=== PATIENT | female | born 1970 | race Caucasian/White ===

== ENCOUNTER 2019-11-13 22:38 | Emergency (ER) | payer OTHER ==
[~2019-11-13] VITALS: Ht 177.8 cm; Wt 83.9 kg
[2019-11-13] MEDS ORDERED: PIPERACILLIN/TAZOBACTAM 3.375 GM in IV NORMAL SALINE 50ML 50 ML IV ONE (22:45)
[2019-11-13] MEDS ORDERED: IV NORMAL SALINE 1,000ML 1,000 ML IV ONE ×2 (22:45)
--- NOTE | 2019-11-13 23:06 | PHYS DOC ---
Adult General HPI HPI Patient is a 49-year-old female brought in by ambulance after a syncopal episode. For the last 2 weeks she has been quite sick overall it started with nausea and vomiting significant lower abdominal pain as well. Was unable to keep anything down has been been giving her some chicken broth as well as a little sips of Pedialyte but she was having a lot of vomiting she also has been having diarrhea she was complaining of significant lower abdominal discomfort. She's also been coughing with yellowish and whitish colored sputum she is having increasing shortness of breath and chest tightness with coughing over the last few days. The chest pain is coming and going just at times and random not cur rently really having it. She went to urgent care 3 days ago they diagnosed her with possible thrush they gave her flu, as all and they gave her Bactrim for an unclear etiology I think they thought she was having an upper respiratory infection according to the 's interpretation as well as brief review of the discharge instructions. Tonight patient was trying to get up to go to the bathroom she rolled out of bed she had a syncopal episode she had a witnessed loss of consciousness no head trauma was noted by the patient with the . Patient is somewhat altered breathing fast history is somewhat limited by the acuity of the condition Review of Systems Review of Systems Treatment somewhat limited by the acuity of the condition past medical history mild asthma medications none allergies none social history lives with does not drink alcohol no smoking no drugs. Current Medications Current Medications Current Medications Medications (Trade) Dose Ordered Sig/Kehinde Start Time Stop Time Status Last Admin Dose Admin Piperacillin Sod/ Tazobactam Sod 3.375 gm/Sodium Chloride 50 ml @ 100 mls/hr 1X ONCE 11/13/19 22:45 11/13/19 23:14 UNV Sodium Chloride 1,000 ml @ 1,000 mls/hr 1X ONCE 11/13/19 22:45 11/13/19 23:44 UNV Physical Exam Physical Exam Constitutional: She is ill-appearing tachypnea eyes closed open to voice HENT: Normocephalic, atraumatic, bilateral external ears normal, oropharynx very dry, no oral exudates, nose normal. [] Eyes: Eyes are open to voice extraocular Cerner intact 3 mm pupils bilaterally Neck: Normal range of motion, no tenderness, supple, no stridor. [] Cardiovascular: Tachycardic no definite murmur but exam is limited Lungs & Thorax: Tachypnea coarse breath sounds on the right Abdomen: Bowel sounds normal, soft, significant tenderness to palpation bilateral lower quadrants worse on the left there is rebound and guarding. Skin: Patient has cool extremities pallor capillary refill is delayed Extremities: See above on skin exam. Neurologic: [place] Coma Scale is a 13 one off for eyes and off for verbal does able to follow commands. Moving all extremities Psychologic: Difficult to assess Current Patient Data Lab Results Laboratory Tests Test 11/13/19 22:56 Glucose (Fingerstick) 175 mg/dL (70-99) H EKG EKG []G shows diffuse ischemia with a sinus tachycardia rate [address] elevation in aVR and ST depression in the lateral leads no criteria for STEMI was seen however. Interpreted by me the time of encounter. Radiology/Procedures Radiology/Procedures []HISTORY: Weakness. FINDINGS: Heart size normal. Mediastinal silhouette is normal. Thin linear discoid atelectasis left lung base. Right lung is clear. No pneumothorax or pleural effusions. Bones are unremarkable. IMPRESSION: Discoid atelectasis at the left lung base. Electronically signed by: Iris Aranda MD (11/14/2019 12:24 AM) [facility] DICTATED AND SIGNED BY: IRIS ARANDA MD DATE: 11/14/1923 CC: SHON LADD MD; PCP,NO ~ Impressions: 1. Perforated sigmoid diverticulitis with a dominant 10 cm abscess within the pelvis surrounding the rectum, uterus and adnexa. There is a smaller 3 cm localized air collection more anteriorly within the pelvis likely near the site of perforation could represent separate smaller developing abscess. 2. Small pleural effusions. FOR INTERNAL CODING PURPOSES Critical result: Critical results called to Dr. SHON LADD at 11/14/2019 12:32 AM. RESULT CODE: (C) Course & Med Decision Making Course & Med Decision Making Right femoral central line placement Indication: septic shock Consent: consent urgent Procedure: The patient was positioned appropriately and the skin over the right femoral vein chlorhexidine full sterile prep and drape gown mask cap sterile glvoes . Local anesthesia was lidocaine. A large bore needle was used to ident chauncey the vein. A guide wire was then inserted into the vein through the needle. triple lumen catheter was then inserted into the vessel over the guide wire using the Seldinger technique. All ports showed good, free flowing blood return and were flushed with saline solution. The catheter was then securely fastened to the skin with sutures and then covered with sterile dresssing. The patient tolerated the procedure well.. Complications: no comlpications Critical care time was 45 minutes exclusive of procedures 49-year-old female presenting with septic shock from perforated diverticulitis, patient initially had very poor skin signs was altered to After 2 L of fluid her respiratory status has improved significantly her skin signs also improved a lot as well. CT scan noted I spoke with Dr. Mahajan general surgeon at 12:30 AM from [place]. He said multispecialty evaluation cardiology interventional radiology infectious disease surgery etc. admit to medical service ICU. I spoke with Dr. Cha who accepted the patient at 12:45 AM Noted the elevated troponin the elevated BNP at think there is also signs of ischemia on EKG the ST depressions could be a little bit from the hypokalemia but there was ST elevation in aVR suggestive of subendocardial ischemia no STEMI was identified. I think in the light of the whole clinical picture is most likely myocardial strain in the setting of sepsis.'' I performed a bedside ultrasound the IVC was fairly plump after 2 L of fluid and the pressure was still soft systolic in the mid to high 80s I placed the above femoral central line. At this point in time we will give pressors if necessary. Potassium repletion was ordered IV Zosyn was provided lactic acid was significantly elevated, treatment for sepsis was initiated. Dragon Disclaimer Dragon Disclaimer This electronic medical record was generated, in whole or in part, using a voice recognition dictation system. Departure Departure: Impression: Primary Impression: Perforation of sigmoid colon due to diverticulitis Additional Impression: Septic shock Disposition: XF [facility] HOSP Condition: GUARDED Referrals: PCP,NO (PCP) Problem Qualifiers SHON LADD MD Nov 13, 2019 23:06
[2019-11-13] MEDS ORDERED: PIPERACILLIN/TAZOBACTAM 3.375 GM VIAL IV ONE (23:12)
[2019-11-13] MEDS ORDERED: IV NORMAL SALINE 50ML 50 ML ONE (23:13)
[2019-11-13 23:19] LABS: BASO # 0.2 x10^3/uL (0.0-0.2); BASO % 1 % (0-3); EOS % 0 % (0-3); HEMATOCRIT 36.9 % (36.0-47.0); HEMOGLOBIN 11.9 g/dL (12.0-15.5); LYMPH # 1.5 x10^3/uL (1.0-4.8); LYMPH % 5 % (24-48); MEAN CORPUSCULAR HEMOGLOBIN 28 pg (25-35); MEAN CORPUSCULAR HGB CONC 32 g/dL (31-37); MEAN CORPUSCULAR VOLUME 87 fL (79-100); MONO # 1.9 x10^3/uL (0.0-1.1); MONO % 6 % (0-9); NEUT # 28.7 x10^3uL (1.8-7.7); NEUT % 89 % (31-73); PLATELET COUNT 529 x10^3/uL (140-400); RED BLOOD COUNT 4.22 x10^6/uL (3.50-5.40); RED CELL DISTRIBUTION WIDTH 13.9 % (11.5-14.5)
[2019-11-13 23:35] LABS: ACETAMIN < 2.0 mcg/mL (10-30)
[2019-11-13 23:42] LABS: ALBUMIN 2.2 g/dL (3.4-5.0); ALBUMIN/GLOBULIN RATIO 0.4 (1.0-1.7); CALCIUM 9.2 mg/dL (8.5-10.1); CREATININE 1.8 mg/dL (0.6-1.0); GFR 29.7; MAGNESIUM 2.4 mg/dL (1.8-2.4); TOTAL BILIRUBIN 0.9 mg/dL (0.2-1.0); TOTAL PROTEIN 7.3 g/dL (6.4-8.2)
[2019-11-13 23:48] LABS: INFLUENZA A PATIENT NEGATIVE (NEGATIVE); INFLUENZA B PATIENT NEGATIVE (NEGATIVE)
[2019-11-13 23:51] LABS: POTASSIUM 2.9 mmol/L (3.5-5.1)
[2019-11-14] MEDS ORDERED: ASPIRIN 81 MG TAB.CHEW PO ONE
[2019-11-14 00:07] LABS: % BANDS 10 % (0-9); % LYMPHS 7 % (24-48); % METAS 1 % (0-0); % MONOS 9 % (0-10); % SEGS 73 % (35-66)
[2019-11-14 00:08] LABS: PLT ESTIMATE INCREASED (ADEQUATE); TOXIC GRANULATION PRESENT
--- NOTE | 2019-11-14 00:27 | RAD ---
AP chest x-ray HISTORY: Weakness. FINDINGS: Heart size normal. Mediastinal silhouette is normal. Thin linear discoid atelectasis left lung base. Right lung is clear. No pneumothorax or pleural effusions. Bones are unremarkable. IMPRESSION: Discoid atelectasis at the left lung base. Electronically signed by: Sincere Aranda MD (11/14/2019 12:24 AM) [facility]
--- NOTE | 2019-11-14 00:35 | RAD ---
CT abdomen and pelvis without contrast PQRS statement: CT scans at this facility use dose reduction including either automated exposure control, iterative reconstructions, and /or weight based radiation dosing via mA and kV modification when appropriate to reduce radiation dose to as low as reasonably achievable. HISTORY: Abdominal pain. Weakness. Perforation. Abdomen findings: Mild left pleural effusion thickness of 1.5 cm. Minimal subcentimeter right pleural effusion. There is mild atelectasis at the lung bases more so at the left lower lobe. Tiny right renal lower pole 1 mm calculus. Left adrenal hyperplasia without a discrete nodule. Right adrenal, left kidney, liver, gallbladder, spleen, pancreas are unremarkable. Perforation sigmoid colon likely perforated diverticulum with inflammatory wall thickening from diverticulitis, with a 3 cm contained air collection along the anterior aspect of the sigmoid colon above the dome of the bladder with larger abscesses in the pelvis. Pelvis findings: Extensive complex air-fluid collection within the pelvis typical of abscess surrounding the uterus and adnexa and rectosigmoid colon diameter 10 cm. Bladder, rectum and bones are unremarkable. IMPRESSION: 1. Perforated sigmoid diverticulitis with a dominant 10 cm abscess within the pelvis surrounding the rectum, uterus and adnexa. There is a smaller 3 cm localized air collection more anteriorly within the pelvis likely near the site of perforation could represent separate smaller developing abscess. 2. Small pleural effusions. FOR INTERNAL CODING PURPOSES Critical result: Critical results called to Dr. SHON LADD at 11/14/2019 12:32 AM. RESULT CODE: (C) Electronically signed by: Sincere Aranda MD (11/14/2019 12:32 AM) [facility]
[2019-11-14 00:39] LABS: BGAS PH 7.52 (7.35-7.45)
[2019-11-14] MEDS ORDERED: POTASSIUM CL 20MEQ-0.45% NACL 1,000 ML IV ONE ×2 (00:55→01:00)
[2019-11-14] MEDS ORDERED: IV NORMAL SALINE 1,000ML 1,000 ML IV SCH (01:00)
[2019-11-14 01:20] VITALS: BP 99/56
--- NOTE | 2019-11-14 06:53 | EKG ---
[address] [address] Test Date: 2019-11-13 Test Time: 22:54:54 Pat Name: ARVIND HORNER Department: Room: Gender: F Choir Leader: : 1970 Requested By: SHON LADD Order Number: [id number] Reading MD: Measurements Intervals [place] Rate: 129 P: 90 DC: 110 QRS: 22 QRSD: 86 T: 17 QT: 308 QTc: 453 Interpretive Statements SINUS TACHYCARDIA INCOMPLETE RIGHT BUNDLE BRANCH BLOCK QRS(T) CONTOUR ABNORMALITY CONSIDER INFERIOR MYOCARDIAL DAMAGE POSSIBLY ABNORMAL ECG RI6.01 No previous ECG available for comparison
[2019-11-14 17:18] LABS: WHITE BLOOD COUNT 32.3 x10^3/uL (4.0-11.0)
== END 2019-11-14 01:27 | disposition short-term general hospital (02) ==
LOC: ER 22:38
DX: R65.21 Severe sepsis with septic shock (principal); K57.20 Diverticulitis of large intestine with perforation and abscess without bleeding; R11.2 Nausea with vomiting, unspecified
CPT/HCPCS: 36415; 36556; 71045; 74176; 80053; 80329; 82550; 82803; 82947; 83605; 83690; 83735; 83880; 84145; 84484; 84702; 85007; 85025; 87040; 87804; 93005; 96360; 96361; 96365; 99291; G0480; J2543; 82003; 99285-25; J7030